=== PATIENT | female | born 1950 | race Caucasian/White ===

== ENCOUNTER → 2022-09-10 | Outpatient (CLI) | payer MEDICARE, BC, SELFPAY ==
[2022-09-10 15:34] LABS: Absolute Lymphocyte Count 1.78 X10^3/uL (0.83-4.51); Absolute Neutrophil Count 2.5 X10^3/uL (2.0-7.7); Basophil# 0.04 X10^3/uL; Basophil% 0.8 % (0-1); Eosinophil# 0.06 X10^3/uL; Eosinophils% 1.3 % (0-5); Hematocrit 40.9 % (37-47); Hemoglobin 13.5 g/dL (12.0-15.0); Lymphocyte # 1.78 X10^3/ul (0.83-4.51); Lymphocyte % 37.5 % (19-41); Mean Corpuscular Hgb 32.2 pg (27.0-32.0); Mean Corpuscular Volume 97.6 fL (81-99); Mean Platelet Vol. 10.5 fl (6.2-12.0); Monocyte# 0.36 X10^3/uL; Monocyte% 7.6 % (0-10); NRBC Flagged by Analyzer 0 % (0-5); Neutrophil % 52.6 % (47-70); Platelet Count 281 K/mm3 (150-450); RBC Distribution Width CV 11.9 % (11.6-14.6); RBC Distribution Width SD 43.1 fl (35.1-43.9); Red Blood Count 4.19 M/mm3 (4.2-5.4); White Blood Count 4.8 K/mm3 (4.4-11.0)
[2022-09-10 16:17] LABS: ALB/GLOB Ratio 1.6 RATIO (0.9-2.4); AST(SGOT) 23 U/L (15-37); Alanine Aminotransfer ALT/SGPT 30 U/L (13-56); Albumin, Serum 4.2 g/dL (3.2-5.0); Alkaline Phosphatase 97 U/L (45-117); Anion Gap 5 (5-15); BUN 15 mg/dL (7-18); BUN/Creat Ratio 22.7 RATIO (10-20); Calcium,Total 9.2 mg/dL (8.5-10.1); Chloride 108 mmol/L (98-107); Cholesterol 245 mg/dL (200); Creatinine, Serum 0.66 mg/dL (0.55-1.02); EST Glomerular Filtration Rate 93 mL/min (>60); Est Glom Filt Rate - Afr Amer 113 mL/min (>60); Globulin 2.7 g/dL (2.2-4.2); Glucose 87 mg/dL (74-106); High Density Lipoprotein 65 mg/dL; Potassium 3.9 mmol/L (3.5-5.1); Protein, Total 6.9 g/dL (6.4-8.2); Sodium Level 141 mmol/L (136-145); Thyroid Stim Hormone (TSH) 1.16 uIU/mL (0.358-3.74); Triglycerides 146 mg/dL; Very Low Density Lipoprotein 29 mg/dL (5-40)
== END | disposition home or self-care (01) ==
LOC: MFPLAB 12:03
PROVIDERS: PCP Family Medicine; Visit Provider Family Medicine
DX: Z00.00 Encounter for general adult medical examination without abnormal findings (principal); E03.9 Hypothyroidism, unspecified; Z13.220 Encounter for screening for lipoid disorders
CPT/HCPCS: 36415; 80053; 80061; 84439; 84443; 85025

== ENCOUNTER → 2022-11-11 | Outpatient (CLI) | payer MEDICARE, BC, SELFPAY ==
--- NOTE | 2022-11-11 09:11 | US_ITS ---
STUDY: THYROID ULTRASOUND REASON FOR EXAM: Female, 72 years old. Hypothyroidism TECHNIQUE: Ultrasound evaluation of the thyroid was performed with real-time and static putnam-scale imaging. COMPARISON: None. FINDINGS: RIGHT LOBE: The right lobe of the thyroid gland measures 4.4 cm x 1.1 cm x 1.3 cm. There is a heterogeneous echotexture. There is a 1.3 cm x 0.8 cm x 0.7 cm solid and cystic nodule in the midportion of the right lobe. Tissue diagnosis is recommended. LEFT LOBE: The left lobe of the thyroid gland measures 4.2 cm x 0.8 cm x 1.3 cm. There is a homogeneous echotexture. There are no demonstrated solid, cystic or complex lesions. ISTHMUS: The isthmus measures 2 mm. The regional lymph nodes are normal. US/Thyroid IMPRESSION: 1.3 cm x 0.8 cm x 0.7 is some solid and cystic nodule in the midportion of the right lobe of the thyroid. Tissue diagnosis is recommended. Electronically Signed: Piter Walsh MD at 14:32 EDT ,
--- NOTE | 2022-11-11 09:30 | BI_ITS ---
MAMMOGRAPHY - BILATERAL SCREENING 3-D TOMOSYNTHESIS REASON FOR EXAM: Female, 72 years old. Routine screening PERTINENT HISTORY: No significant family history. TECHNIQUE: 2-D mammograms and 3-D Tomosynthesis of the breast (s) were performed. CAD was performed. COMPARISON: 07/13/2015 FINDINGS: The breast composition is composed of scattered fibroglandular density. Scattered benign calcifications are seen. No dense spiculated masses or suspicious microcalcifications are identified. No architectural distortion is identified. There is no skin thickening or retraction. There has been no significant change since the prior study. BI/SCRN MAMM (CAD)W/LEEANNE BILAT IMPRESSION: No mammographic signs of malignancy. Routine yearly mammograms recommended. ASSESSMENT CATEGORY: BIRADS Category 2: Benign. A letter regarding these results will be sent to the patient by the facility within 30 days. FOLLOW UP RECOMMENDATION: Yearly follow up mammogram recommended. (A) Approximately 10% of breast cancers are not detected by mammography. A normal mammogram should not delay biopsy of a clinically suspicious abnormality. Electronically Signed: Rafael Morris MD at 8:33 EDT ,
--- NOTE | 2022-11-11 10:12 | BD_ITS ---
STUDY: DUAL ENERGY X-RAY ABSORPTIOMETRY / DXA REASON FOR EXAM: Female, 72 years old. [id number] TECHNIQUE: Bone Mineral Density (BMD) measurements of lumbar spine and bilateral hips were obtained. COMPARISON: None. FINDINGS: Lumbar Spine (L1-L4): g/cm2 (0.871) / T-score (-1.5) / Z-score (0.8) Findings are suggestive of osteopenia with a low fracture risk. Left Femur Total: g/cm2 (0.853) / T-score (-0.7) / Z-score (1.0) Left Femoral Neck: g/cm2 (0.624) / T-score (-2.0) / Z-score (0.0) Right Femur Total: g/cm2 (0.818) / T-score (-1.0) / Z-score (0.7) Right Femoral Neck: g/cm2 (0.573) / T-score (-2.5) / Z-score (-0.5) BD/Dexa Bone Density Study IMPRESSION: The patient is considered osteopenic as outlined below according to World [employer] Organization (WHO) criteria with a high fracture risk. Reference Information: The T-score is the number of standard deviations above or below the standard which is normal for young adults at their peak bone mineral density. The World Health Organization (WHO) interprets the T-scores as follows: Above -1 Normal bone density Between -1 and -2.5 Osteopenia Equal to / or below -2.5 Osteoporosis As a practical clinical guideline, osteopenia may be graded as follows: Mild -1 through -1.5 Moderate -1.6 through -2.0 Severe -2.1 through -2.4 The Z-score is the number of standard deviations above or below age-matched controls. A Z-score of less than -1.5 would be considered abnormal. References: 1. NIH Osteoporosis and Related Bone Diseases www osteo.org 2. International Society for Clinical Densitometry www iscd.org 3. National Osteoporosis Foundation www nof.org Electronically Signed: Piter Walsh MD at 14:41 EDT ,
== END | disposition home or self-care (01) ==
PROVIDERS: PCP Family Medicine; Referring Provider Family Medicine; Visit Provider Family Medicine
DX: E03.9 Hypothyroidism, unspecified (principal); Z12.31 Encounter for screening mammogram for malignant neoplasm of breast; Z13.820 Encounter for screening for osteoporosis; Z78.0 Asymptomatic menopausal state
CPT/HCPCS: 76536; 77063; 77067; 77080

== ENCOUNTER → 2022-11-24 | Outpatient (CLI) | payer MEDICARE, BC, SELFPAY ==
[2022-11-24 11:36] LABS: Vitamin D,25 Hydroxy 28.9 ng/mL
== END | disposition home or self-care (01) ==
LOC: MTLAB 08:02
PROVIDERS: PCP Family Medicine; Referring Provider Family Medicine; Visit Provider Family Medicine
DX: M85.80 Other specified disorders of bone density and structure, unspecified site (principal)
CPT/HCPCS: 36415; 82306

== ENCOUNTER → 2022-12-05 | Outpatient (CLI) | payer MEDICARE, BC, SELFPAY ==
--- NOTE | 2022-12-05 07:30 | ASPS_PTH ---
PATIENT: DAVIDA STERN LOC: [facility] U#:[id number] AGE/SX: 72/F ROOM: RE12/05/[address]: Dr. Keith Belle MD : 1950 BED: DIS: 12/05/2022 SPEC #: [id number] RECD: 12/05/22 10:47 STATUS: TYESHA ANGELO #: [id number] STEPHANY: 12/05/22 07:[address]: Keith Belle DEPT: CYTOLOGY RECD BY: Leatha Argueta ENTERED: 12/05/22 11:14 SP TYPE: ASPIRATION OTHR DR: Ana Eagle DO Tissues: Thyroid gland, NOS Procedures: Special Stain Group II Cytology Other HEADER OPERATION: Right thyroid fine needle aspiration PRE-OP DIAGNOSIS: Right thyroid nodule TISSUE SUBMITTED: Right thyroid x6 slides DIAGNOSIS CYTOLOGY Right thyroid nodule, fine needle aspiration (smears): Consistent with benign follicular/colloid nodule with cystic changes (Summit Category II). Adequate for evaluation. See comment. SJ:alphonso 12/05/2022 COMMENT Correlation with clinical, radiologic findings and appropriate follow up are necessary. The specimen is consistent with follicular and Hurthle cells. The Summit System for thyroid diagnostic categorization was used in the evaluation of this case. CYTOLOGY STUDY Slides are reviewed. CYTOLOGY GROSS Received are six smears labeled with the patient's name and designated per the requisition as left thyroid nodule. Submitted for staining. / alphonso 12/05/2022 TC:5 CPT: 20886
== END | disposition home or self-care (01) ==
LOC: LABSPEC 11:02
PROVIDERS: PCP Family Medicine; Referring Provider Surgery; Visit Provider Surgery
DX: E04.1 Nontoxic single thyroid nodule (principal)
CPT/HCPCS: 88161; 88313

== ENCOUNTER 2023-02-26 07:19 | Outpatient (CLI) | payer MEDICARE, BC, SELFPAY ==
[2023-02-26 11:06] LABS: Vitamin D,25 Hydroxy 56.5 ng/mL
[2023-02-26 11:07] LABS: Cholesterol 259 mg/dL (200); High Density Lipoprotein 70 mg/dL; Triglycerides 142 mg/dL; Very Low Density Lipoprotein 28 mg/dL (5-40)
== END 2023-02-26 23:59 | disposition home or self-care (01) ==
LOC: MTLAB 07:20
PROVIDERS: PCP Family Medicine; Referring Provider Family Medicine; Visit Provider Family Medicine
DX: Z13.220 Encounter for screening for lipoid disorders (principal); E55.9 Vitamin D deficiency, unspecified; E78.00 Pure hypercholesterolemia, unspecified
CPT/HCPCS: 36415; 80061; 82306

== ENCOUNTER → 2023-09-15 | Outpatient (CLI) | payer MEDICARE, BC, SELFPAY ==
[2023-09-15 10:33] LABS: Absolute Lymphocyte Count 1.75 X10^3/uL (0.83-4.51); Absolute Neutrophil Count 2.3 X10^3/uL (2.0-7.7); Basophil# 0.04 X10^3/uL; Basophil% 0.9 % (0-1); Eosinophil# 0.12 X10^3/uL; Eosinophils% 2.6 % (0-5); Hematocrit 41.5 % (37-47); Hemoglobin 13.6 g/dL (12.0-15.0); Lymphocyte # 1.75 X10^3/ul (0.83-4.51); Lymphocyte % 38.2 % (19-41); Mean Corp Hgb Conc 32.8 g/dL (32-36); Mean Corpuscular Hgb 31.3 pg (27.0-32.0); Mean Corpuscular Volume 95.4 fL (81-99); Monocyte# 0.41 X10^3/uL; NRBC Flagged by Analyzer 0 % (0-5); Neutrophil # 2.25 X10^3/uL (2.7-7.7); Neutrophil % 49.1 % (47-70); Platelet Count 296 K/mm3 (150-450); RBC Distribution Width CV 12.1 % (11.6-14.6); RBC Distribution Width SD 42.6 fl (35.1-43.9); Red Blood Count 4.35 M/mm3 (4.2-5.4); White Blood Count 4.6 K/mm3 (4.4-11.0)
[2023-09-15 10:57] LABS: Vitamin D,25 Hydroxy 62.3 ng/mL
[2023-09-15 11:11] LABS: ALB/GLOB Ratio 1.3 RATIO (0.9-2.4); AST(SGOT) 22 U/L (15-37); Alanine Aminotransfer ALT/SGPT 28 U/L (13-56); Albumin, Serum 3.9 g/dL (3.2-5.0); Alkaline Phosphatase 102 U/L (45-117); Anion Gap 2 (5-15); BUN 14 mg/dL (7-18); BUN/Creat Ratio 23.6 RATIO (10-20); Calcium,Total 9.5 mg/dL (8.5-10.1); Chloride 109 mmol/L (98-107); Cholesterol 279 mg/dL (200); Creatinine, Serum 0.59 mg/dL (0.55-1.02); EST Glomerular Filtration Rate 105 mL/min (>60); Est Glom Filt Rate - Afr Amer 128 mL/min (>60); Globulin 3.1 g/dL (2.2-4.2); Glucose 102 mg/dL (74-106); High Density Lipoprotein 75 mg/dL; Potassium 4.1 mmol/L (3.5-5.1); Sodium Level 139 mmol/L (136-145); T4 Free Direct 0.96 ng/dL (0.76-1.46); Thyroid Stim Hormone (TSH) 2.29 uIU/mL (0.358-3.74); Triglycerides 176 mg/dL; Very Low Density Lipoprotein 35 mg/dL (5-40)
== END | disposition home or self-care (01) ==
LOC: MFPLAB 08:58
PROVIDERS: PCP Family Medicine; Visit Provider Family Medicine
DX: E55.9 Vitamin D deficiency, unspecified (principal); E78.5 Hyperlipidemia, unspecified; E03.9 Hypothyroidism, unspecified
CPT/HCPCS: 36415; 80053; 80061; 82306; 84439; 84443; 85025

== ENCOUNTER → 2023-11-16 | Outpatient (CLI) | payer MEDICARE, BC, SELFPAY ==
--- NOTE | 2023-11-16 09:01 | BI_ITS ---
MAMMOGRAPHY - BILATERAL SCREENING REASON FOR EXAM: Female, 73 years old. Routine annual screening examination. PERTINENT HISTORY: Non-contributory. TECHNIQUE: Digital bilateral breast leeanne (3D mammographic acquisition) in the CC and MLO projections. 2-D mediolateral oblique (MLO) and craniocaudad (CC) views of both breasts were obtained. CAD: Full Field Digital Mammography with Computer Added Detection was performed. COMPARISON: Comparison is made with prior study dated November 11, 2022. FINDINGS: Breast Composition: There are scattered areas of fibroglandular density. There are no dominant masses or suspicious calcifications. Stable small benign appearing bilateral axillary lymph nodes. No other significant abnormalities are identified. There has been no significant change since the prior study. BI/SCRN MAMM (CAD)W/LEEANNE BILAT IMPRESSION: Stable bilateral screening mammogram. Yearly follow-up mammogram recommended. (A) ASSESSMENT CATEGORY: BIRADS Category 2: Benign. A letter regarding these results will be sent to the patient by the facility within 30 days. Approximately 10% of breast cancers are not detected by mammography. A normal mammogram should not delay biopsy of a clinically suspicious abnormality. [id number] Electronically Signed: Piter Walsh MD at 10:24 EDT ,
== END | disposition home or self-care (01) ==
LOC: OPBI 08:59
PROVIDERS: PCP Family Medicine; Referring Provider Family Medicine; Visit Provider Family Medicine
DX: Z12.31 Encounter for screening mammogram for malignant neoplasm of breast (principal)
CPT/HCPCS: 77063; 77067

== ENCOUNTER 2024-10-17 11:59 | Outpatient (CLI) | payer MEDICARE, BC, SELFPAY ==
[2024-10-17 16:06] LABS: Absolute Lymphocyte Count 1.88 X10^3/uL (0.83-4.51); Absolute Neutrophil Count 3.2 X10^3/uL (2.0-7.7); Basophil# 0.03 X10^3/uL; Basophil% 0.5 % (0-1); Eosinophil# 0.06 X10^3/uL; Eosinophils% 1.1 % (0-5); Hematocrit 43.2 % (37-47); Hemoglobin 14.5 g/dL (12.0-15.0); Lymphocyte # 1.88 X10^3/ul (0.83-4.51); Lymphocyte % 33.2 % (19-41); Mean Corp Hgb Conc 33.6 g/dL (32-36); Mean Corpuscular Hgb 31.9 pg (27.0-32.0); Mean Corpuscular Volume 94.9 fL (81-99); Mean Platelet Vol. 10.6 fl (6.2-12.0); Monocyte# 0.45 X10^3/uL; NRBC Flagged by Analyzer 0 % (0-5); Neutrophil # 3.22 X10^3/uL (2.7-7.7); Neutrophil % 56.8 % (47-70); Platelet Count 298 K/mm3 (150-450); RBC Distribution Width CV 11.9 % (11.6-14.6); RBC Distribution Width SD 41.2 fl (35.1-43.9); Red Blood Count 4.55 M/mm3 (4.2-5.4); White Blood Count 5.7 K/mm3 (4.4-11.0)
[2024-10-18 15:29] LABS: ALB/GLOB Ratio 2.2 RATIO (0.9-2.4); AST(SGOT) 35 U/L (<=31); Alanine Aminotransfer ALT/SGPT 43 U/L (<=34); Albumin, Serum 4.4 g/dL (3.4-4.8); Alkaline Phosphatase 111 U/L (35-104); Anion Gap 10 (5-15); BUN 14 mg/dL (4-19); BUN/Creat Ratio 20.6 RATIO (10-20); Calcium,Total 9.7 mg/dL (7.6-11.0); Carbon Dioxide 24.7 mmol/L (21.0-32.0); Chloride 104 mmol/L (98-108); Cholesterol 277 mg/dL (<=200); Creatinine, Serum 0.69 mg/dL (0.70-1.20); EST Glomerular Filtration Rate 90 (>60); Glucose 89 mg/dL (70-99); High Density Lipoprotein 66 mg/dL; Low Density Lipoprotein Calc. 174 mg/dL; Potassium 4.3 mmol/L (3.3-5.1); Protein, Total 6.4 g/dL (5.9-8.4); Sodium Level 140 mmol/L (133-145); Total Bilirubin 1.07 mg/dL (0.00-1.30); Triglycerides 190 mg/dL; Very Low Density Lipoprotein 38 mg/dL (5-40); Vitamin D,25 Hydroxy 48.3 ng/mL (30-100); cholesterol:hdl ratio screen 4.23
== END 2024-10-17 23:59 | disposition home or self-care (01) ==
LOC: MFPLAB 12:00
PROVIDERS: PCP Family Medicine; Referring Provider Family Medicine; Visit Provider Family Medicine
DX: Z00.00 Encounter for general adult medical examination without abnormal findings (principal); E03.9 Hypothyroidism, unspecified; E78.5 Hyperlipidemia, unspecified; E55.9 Vitamin D deficiency, unspecified
CPT/HCPCS: 36415; 80053; 80061; 82306; 84439; 84443; 85025